=== PATIENT | female | born 1965 | race Caucasian/White ===

== ENCOUNTER 2017-09-04 18:38 | Emergency (ER) | payer BC, OTHER ==
[~2017-09-04] VITALS: Ht 152.4 cm; Wt 47.8 kg
[~2017-09-04 18:38] MED LIST: EFFSR150 PO
[2017-09-04 18:44] VITALS: TEMP 36.8; Ht 152.4 cm; Wt 47.8 kg
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
[2017-09-04] MEDS ORDERED: VENL75CA73 PO (19:47)
[2017-09-04] MEDS ORDERED: VENL150T33 PO (19:47)
[2017-09-04 20:24] VITALS: BP 149/92; PULSE 88; O2SAT 97
== END 2017-09-04 20:25 | disposition home or self-care (01) ==
LOC: C.EDB 18:40 → C.EDD 20:25
DX: S93.402A Sprain of unspecified ligament of left ankle, initial encounter (principal); W10.9XXA Fall (on) (from) unspecified stairs and steps, initial encounter; Z83.3 Family history of diabetes mellitus; Z82.49 Family history of ischemic heart disease and other diseases of the circulatory system; F17.210 Nicotine dependence, cigarettes, uncomplicated; Z79.899 Other long term (current) drug therapy